=== PATIENT | male | born 1945 | race Caucasian/White ===

== ENCOUNTER 2020-06-18 13:50 | Emergency (ER) | payer MEDICARE, OTHER ==
[~2020-06-18] VITALS: Ht 172.7 cm; Wt 83.9 kg
[2020-06-18] MEDS ORDERED: LEVE500T20 PO (14:07)
[2020-06-18] MEDS ORDERED: CARB-93 PO (14:07)
[2020-06-18] MEDS ORDERED: LEVO75TA7 PO (14:07)
[2020-06-18] MEDS ORDERED: FOLIC ACID PO (14:07)
[2020-06-18] MEDS ORDERED: FURO-151 PO (14:07)
[2020-06-18] MEDS ORDERED: CYAN100T44 PO (14:07)
[2020-06-18 15:08] LABS: BASOPHILS # (AUTO) 0.1 K/uL (0.0-8.0); BASOPHILS % (AUTO) 1.1 % (0.0-2.0); EOSINOPHILS # (AUTO) 0.1 K/uL (0.0-0.7); EOSINOPHILS % (AUTO) 1.2 % (0.0-7.0); HEMATOCRIT 37.3 % (36.7-47.1); HEMOGLOBIN 12.6 g/dL (12.5-16.3); LYMPHOCYTES # (AUTO) 0.8 K/uL (20.0-40.0); LYMPHOCYTES % (AUTO) 11.5 % (20.5-51.5); MEAN CORPUSCULAR HEMOGLOBIN 32.2 uug (23.8-33.4); MEAN CORPUSCULAR HGB CONC 34 g/dL (32.5-36.3); MEAN CORPUSCULAR VOLUME 95.2 fL (73.0-96.2); MONOCYTES # (AUTO) 0.5 K/uL (2.0-10.0); MONOCYTES % (AUTO) 6.4 % (0.0-11.0); NEUTROPHILS # (AUTO) 5.8 K/uL (1.8-8.9); NEUTROPHILS % (AUTO) 79.8 % (38.5-71.5); PLATELET COUNT (AUTO) 188 K/uL (152-348); RED BLOOD CELL COUNT(AUTO) 3.92 MIL/uL (4.06-5.63); WHITE BLOOD COUNT (AUTO) 7.3 K/uL (3.6-10.2)
[2020-06-18 15:21] LABS: CARBON DIOXIDE 32 mmol/L (21-32); CHLORIDE 103 mmol/L (98-107); CREATININE 1.5 mg/dL (0.6-1.3); GLUCOSE 93 mg/dL (74-106); POTASSIUM 3.7 mmol/L (3.5-5.1); UREA NITROGEN, BLOOD 34 mg/dL (7-18)
[2020-06-18 15:28] LABS: ALANINE AMINOTRANSFERASE 11 U/L (16-63); ALKALINE PHOSPHATASE 60 U/L (50-136); ASPARTATE AMINOTRANSFERASE 10 U/L (15-37); BILIRUBIN,DIRECT 0.2 mg/dL (0.0-0.2); BILIRUBIN,TOTAL 0.6 mg/dL (0.2-1.0); TOTAL PROTEIN, SERUM 7.3 g/dL (6.4-8.2)
[2020-06-18] MEDS ORDERED: GLUCAGON,HUMAN RECOMBINANT 1 MG VIAL ONE (15:30)
[2020-06-18] MEDS ORDERED: GLUCAGON,HUMAN RECOMBINANT 1 MG VIAL IVP ONE (15:30)
[2020-06-18] MEDS ORDERED: DILTIAZEM HCL 25 MG IV IV ONE (16:15)
[2020-06-18] MEDS ORDERED: DILTIAZEM HCL 25 MG IV ONE (16:20)
[2020-06-18 16:23] LABS: THYROID STIMULATING HORMONE 7.932 mIU/mL (0.358-3.740)
[2020-06-18] MEDS ORDERED: FUROSEMIDE 40 MG/4 ML VIAL IV ONE (17:00)
--- NOTE | 2020-06-18 17:01 | NUR ---
PO challenged started.
[2020-06-18] MEDS ORDERED: FUROSEMIDE 40 MG/4 ML VIAL ONE (17:09)
--- NOTE | 2020-06-18 17:25 | NUR ---
Patient ambulated to bathroom with one person assist.
--- NOTE | 2020-06-18 17:29 | NUR ---
Patient said that he "spit out the juice" and still feels some discomfort/pain@the lower neck area, MD notified.
--- NOTE | 2020-06-18 18:33 | NUR ---
Patient is resting comfortably on gurney while watching bedside TV.
--- NOTE | 2020-06-18 19:07 | NUR ---
Patient is still for repeat troponin. Lab notified. Patient may be discharge if troponin is negative. Hands off report given to CORBY Loya.
--- NOTE | 2020-06-18 21:33 | NUR ---
Patient second Troponin Results came in. Negative (<0.056) results are 0.017. Relayed information to patient caregiver - Jennifer - She will be picking patient up.
[2020-06-18 21:35] VITALS: BP 107/60
--- NOTE | 2020-06-18 22:41 | NUR ---
Patient discharged in stable condition. Picked up by caregiver Jennifer. All information given to patient.
== END 2020-06-18 22:43 | disposition home or self-care (01) ==
LOC: ER 13:50
DX: T17.928A Food in respiratory tract, part unspecified causing other injury, initial encounter (principal); X58.XXXA Exposure to other specified factors, initial encounter; Y93.89 Activity, other specified; Y92.89 Other specified places as the place of occurrence of the external cause; Y99.8 Other external cause status; I48.91 Unspecified atrial fibrillation; R07.9 Chest pain, unspecified; I50.9 Heart failure, unspecified; Z79.899 Other long term (current) drug therapy; Z79.02 Long term (current) use of antithrombotics/antiplatelets
CPT/HCPCS: 36415; 71045; 80048; 80076; 83880; 84443; 84484 ×2; 85025; 85730; 93005; 96374; 96375; 99285; J1610; J1940; J3490; 70030-TC; A4663

== ENCOUNTER 2020-09-04 12:18 | Inpatient (IN) | payer MEDICARE, OTHER ==
[~2020-09-04] VITALS: Ht 167.6 cm; Wt 80.3 kg
[~2020-09-04 12:18] MED LIST: CARB-93 PO; CYAN100T44 PO; FOLIC ACID PO; FURO-151 PO; LEVE500T20 PO; LEVO75TA7 PO
--- NOTE | 2020-09-04 12:25 | NUR ---
Patient brought in by [facility] 88 for hypotension BP: 69/41 (Reported from paramedics), FSBS 125, 20 gauge saline locked IV noted in right AC
--- NOTE | 2020-09-04 12:40 | NUR ---
at bedside of assssment
[2020-09-04] MEDS ORDERED: PANT40TA49 PO (12:47)
[2020-09-04] MEDS ORDERED: LISI-782 PO (12:47)
[2020-09-04] MEDS ORDERED: POTA10CA43 PO (12:47)
[2020-09-04] MEDS ORDERED: LEVO50TA8 PO (12:47)
[2020-09-04] MEDS ORDERED: CALC-6 PO (12:47)
[2020-09-04] MEDS ORDERED: DABI150C PO (12:47)
[2020-09-04] MEDS ORDERED: ALEN70TA80 PO (12:47)
[2020-09-04] MEDS ORDERED: AMIO200T5 PO (12:47)
[2020-09-04] MEDS ORDERED: IV NORMAL SALINE 500 ML BAG IV ONE (13:15)
[2020-09-04 13:20] LABS: RED BLOOD CELL COUNT(AUTO) 3.65 MIL/uL (4.06-5.63); WHITE BLOOD COUNT (AUTO) 12.7 K/uL (3.6-10.2)
[2020-09-04 13:22] LABS: BASOPHILS # (AUTO) 0.1 K/uL (0.0-8.0); BASOPHILS % (AUTO) 0.5 % (0.0-2.0); HEMATOCRIT 35.2 % (36.7-47.1); HEMOGLOBIN 11.8 g/dL (12.5-16.3); LYMPHOCYTES # (AUTO) 0.5 K/uL (20.0-40.0); LYMPHOCYTES % (AUTO) 3.7 % (20.5-51.5); MEAN CORPUSCULAR HEMOGLOBIN 32.4 uug (23.8-33.4); MEAN CORPUSCULAR HGB CONC 34 g/dL (32.5-36.3); MEAN CORPUSCULAR VOLUME 96.3 fL (73.0-96.2); MONOCYTES # (AUTO) 0.9 K/uL (2.0-10.0); MONOCYTES % (AUTO) 6.9 % (0.0-11.0); NEUTROPHILS # (AUTO) 11.3 K/uL (1.8-8.9); NEUTROPHILS % (AUTO) 88.9 % (38.5-71.5); PLATELET COUNT (AUTO) 151 K/uL (152-348)
[2020-09-04 13:26] LABS: CARBON DIOXIDE 29 mmol/L (21-32); CHLORIDE 101 mmol/L (98-107); CREATININE 2.7 mg/dL (0.6-1.3); GLUCOSE 116 mg/dL (74-106); POTASSIUM 3.6 mmol/L (3.5-5.1); UREA NITROGEN, BLOOD 54 mg/dL (7-18)
[2020-09-04 13:31] LABS: ALANINE AMINOTRANSFERASE 12 U/L (16-63); ALKALINE PHOSPHATASE 52 U/L (50-136); ASPARTATE AMINOTRANSFERASE 10 U/L (15-37); BILIRUBIN,TOTAL 1.2 mg/dL (0.2-1.0); CREATINE KINASE, TOTAL 66 U/L (39-308); LACTATE DEHYDROGENASE 138 U/L (85-227); TOTAL PROTEIN, SERUM 6.7 g/dL (6.4-8.2)
[2020-09-04 13:37] LABS: FERRITIN 227 ng/mL (26-388)
--- NOTE | 2020-09-04 13:38 | NUR ---
Unable to get urine at this time
[2020-09-04] MEDS ORDERED: PIPERACILLIN SODIUM/TAZOBACTAM 3.375 G in IV DEXTROSE 5% 50 ML IV ONE (13:45)
[2020-09-04] MEDS ORDERED: PIPERACILLIN/TAZOBACTAM/D5W 50 ML IV ONE (14:01)
[2020-09-04] MEDS ORDERED: IV NS 1000 ML 1,000 ML IV ONE (15:15)
[2020-09-04] MEDS ORDERED: ONDANSETRON 4 MG/2 ML VIAL IV PRN (15:15)
[2020-09-04] MEDS ORDERED: ALENDRONATE SODIUM 70 MG TABLET PO SCH (15:30)
[2020-09-04] MEDS ORDERED: LEVOTHYROXINE SODIUM 50 MCG TABLET PO SCH (15:30)
[2020-09-04 15:35] LABS: BILIRUBIN,DIRECT 0.4 mg/dL (0.0-0.2); BILIRUBIN,TOTAL 1.2 mg/dL (0.2-1.0)
--- NOTE | 2020-09-04 17:13 | NUR ---
Report given to Lawton CORBY
--- NOTE | 2020-09-04 17:30 | NUR ---
Pt. admitted to [facility] , under care of LEONIE Newman Belongs List completed and all belongings sent with patient
[2020-09-04 17:45] VITALS: BP 106/61
--- NOTE | 2020-09-04 18:30 | NUR ---
VSS 106/61 - resp 20- pulse 120's afib uncontrolled RVR. DR HARVEY aware of HR. New order received. For Cardizem.
[2020-09-04] MEDS ORDERED: DILTIAZEM HCL 25 MG IV IV ONE (18:45)
[2020-09-04] MEDS ORDERED: DILTIAZEM HCL IV 125 MG in IV NORMAL SALINE 100 ML IV PRN (18:45)
[2020-09-04] MEDS ORDERED: AMIODARONE HCL IV 150 MG in IV DEXTROSE 5% 100 ML IV ONE (19:00)
--- NOTE | 2020-09-04 19:07 | NUR ---
Per pharmacy new order received for amiodorone instead of cardizem.
[2020-09-04 19:23] LABS: *BILIRUBIN,URIN NEGATIVE (NEGATIVE); *BLOOD, URINE 3+ (NEGATIVE); *CLARITY,URINE CLOUDY (CLEAR); *COLOR,URINE YELLOW (YELLOW); *KETONES,URINE NEGATIVE (NEGATIVE); *UROBILINOGEN,URINE 0.2 E.U./dl (NORMAL); LEUKOCYTE ESTERASE ,URINE 2+ (NEGATIVE); NITRITE, URINE NEGATIVE (NEGATIVE); UGLUCOSE NEGATIVE (NEGATIVE)
[2020-09-04] MEDS: FOLIC ACID 1 MG TABLET PO SCH (19:49)
[2020-09-04] MEDS: CARBIDOPA/LEVODOPA 25-100MG TABLET PO SCH ×2 (19:49→21:00)
[2020-09-04] MEDS: levETIRAcetam 500 MG TABLET PO SCH (19:49)
[2020-09-04] MEDS: DABIGATRAN ETEXILATE MESYLATE 75 MG CAPSULE PO SCH (19:54)
[2020-09-04] MEDS: CALCIUM CARB/VITAMIN D 250MG-125UNITS TABLET PO SCH (19:55)
[2020-09-04] MEDS: AMIODARONE HCL IV 450 MG in IV DEXTROSE 5% 250 ML IV PRN (20:12)
[2020-09-04 20:46] VITALS: BP 96/60
[2020-09-04] MEDS: PIPERACILLIN SODIUM/TAZOBACTAM 3.375 G in IV DEXTROSE 5% 50 ML IV SCH (21:27)
--- NOTE | 2020-09-04 23:00 | NUR ---
pt seen by LEONIE Zamora with new orders; pt on amiodarone drip; remains AFIB RVR; safety maintained; continue to monitor.
[2020-09-04 23:11] LABS: BACTERIA,URINE MANY /HPF (NONE SEEN); RBC,URINE TNTC /HPF (0-3); SQUAMOUS EPITHELIAL CELL,UR FEW /HPF (NONE SEEN); URINE AMORPHOUS URATE MANY /HPF; WBC,URINE 80-100 /HPF (0-3)
[2020-09-05] VITALS (8 sets, daily range): BP systolic 91–118; BP diastolic 53–70
[2020-09-05] MEDS ORDERED: AMIODARONE HCL 150 MG/3 ML VIAL IV ONE (02:24)
[2020-09-05] MEDS: DABIGATRAN ETEXILATE MESYLATE 75 MG CAPSULE PO SCH (05:09)
[2020-09-05] MEDS: PIPERACILLIN SODIUM/TAZOBACTAM 3.375 G in IV DEXTROSE 5% 50 ML IV SCH ×3 (05:10→22:00)
[2020-09-05] MEDS: AMIODARONE HCL IV 450 MG in IV DEXTROSE 5% 250 ML IV PRN ×2 (05:11→17:11)
[2020-09-05 06:55] LABS: BASOPHILS % (AUTO) 0.4 % (0.0-2.0); EOSINOPHILS % (AUTO) 0.4 % (0.0-7.0); HEMATOCRIT 33.1 % (36.7-47.1); HEMOGLOBIN 11.7 g/dL (12.5-16.3); LYMPHOCYTES # (AUTO) 0.7 K/uL (20.0-40.0); LYMPHOCYTES % (AUTO) 6.6 % (20.5-51.5); MEAN CORPUSCULAR HEMOGLOBIN 33.7 uug (23.8-33.4); MEAN CORPUSCULAR HGB CONC 35 g/dL (32.5-36.3); MEAN CORPUSCULAR VOLUME 95.7 fL (73.0-96.2); MONOCYTES % (AUTO) 9.9 % (0.0-11.0); NEUTROPHILS # (AUTO) 8.2 K/uL (1.8-8.9); NEUTROPHILS % (AUTO) 82.7 % (38.5-71.5); PLATELET COUNT (AUTO) 143 K/uL (152-348); RED BLOOD CELL COUNT(AUTO) 3.46 MIL/uL (4.06-5.63); WHITE BLOOD COUNT (AUTO) 9.9 K/uL (3.6-10.2)
[2020-09-05 07:13] LABS: THYROID STIMULATING HORMONE 3.368 mIU/mL (0.358-3.740)
[2020-09-05 07:21] LABS: CARBON DIOXIDE 30 mmol/L (21-32); CHLORIDE 101 mmol/L (98-107); CREATININE 1.8 mg/dL (0.6-1.3); GLUCOSE 93 mg/dL (74-106); POTASSIUM 3.3 mmol/L (3.5-5.1); UREA NITROGEN, BLOOD 41 mg/dL (7-18)
[2020-09-05 07:30] LABS: IRON, SERUM 20 ug/dL (50-175)
[2020-09-05 07:42] LABS: ALANINE AMINOTRANSFERASE 10 U/L (16-63); ALKALINE PHOSPHATASE 46 U/L (50-136); ASPARTATE AMINOTRANSFERASE 12 U/L (15-37); BILIRUBIN,TOTAL 0.9 mg/dL (0.2-1.0); CHOLESTEROL 112 mg/dL (<200); FERRITIN 298 ng/mL (26-388); HDL CHOLESTEROL 42 mg/dL (40-60); PHOSPHOROUS 2.6 mg/dL (2.5-4.9); TOTAL PROTEIN, SERUM 6.6 g/dL (6.4-8.2); TRIGLYCERIDES 38 MG/DL (30-150)
--- NOTE | 2020-09-05 08:00 | NUR ---
Pt alert and oriented. Pt able to verbalize his needs. Aspiration, Fall, Seizure precaution implemented. PT on amiodorone drip @ 0.5mg/ml per protocol. Pt denies any c/o pain. Buttock reddened but pt able to turn himself side to side. Heels floated. IV on right ac and right f/a intact. Call light is within reach.
[2020-09-05] MEDS: CARBIDOPA/LEVODOPA 25-100MG TABLET PO SCH ×4 (08:31→20:47)
[2020-09-05] MEDS: FOLIC ACID 1 MG TABLET PO SCH ×2 (08:31→16:37)
[2020-09-05] MEDS: levETIRAcetam 500 MG TABLET PO SCH ×2 (08:31→16:37)
[2020-09-05] MEDS: CALCIUM CARB/VITAMIN D 250MG-125UNITS TABLET PO SCH ×2 (08:31→16:38)
[2020-09-05] MEDS: PANTOPRAZOLE SODIUM 40 MG TABLET.DR PO SCH (08:31)
[2020-09-05] MEDS: FUROSEMIDE 40 MG TABLET PO SCH (08:31)
[2020-09-05] MEDS: CYANOCOBALAMIN 1,000 MCG TABLET PO SCH (08:41)
[2020-09-05] MEDS ORDERED: AMIODARONE HCL 200 MG TABLET PO SCH (09:00)
[2020-09-05] MEDS ORDERED: PANTOPRAZOLE SODIUM 40 MG VIAL IV SCH (09:00)
[2020-09-05] MEDS ORDERED: POTASSIUM CHLORIDE 20 MEQ POWDER PACKET PO ONE (09:00)
[2020-09-05] MEDS ORDERED: CYANOCOBALAMIN 100 MCG TABLET PO SCH (09:00)
--- NOTE | 2020-09-05 10:00 | NUR ---
Pt refused F/c insertion as ordered per Oksana DAVILA. Oksana notified of pt refusal and notified that pt was able to urinate 250cc. Checked residual of 42cc. Per Oksana insert f/c if bladder scan results greater than 300cc and check bladder scan q4 hrs.
--- NOTE | 2020-09-05 12:00 | NUR ---
IV on right ac infiltrated restarted iv on left f/a with #20gauge. Pt has good appetite.
--- NOTE | 2020-09-05 12:33 | NUR ---
WOUND CARE CONSULT: PT REFUSED SKIN ASSESSMENT AND STATES "MY EARS ARE FINE". WILL SEE PT PT CONDITION PERMITS. CURRENT JJ SCORE IS 20.
--- NOTE | 2020-09-05 14:00 | NUR ---
Bladder scanned as ordered resulted 85cc.
--- NOTE | 2020-09-05 16:00 | NUR ---
bladder scan resulted 30cc. Pt has been able to urinate throughout shift without any difficulty. Urine colored dared dyllan cloudy.
--- NOTE | 2020-09-05 18:30 | NUR ---
Pt transferred TO ICU as [facility] pt. Pt is in no acute distress. Noted coughing when feeding pt even with HOB elevated @90 degrees. Call light is within reach.
--- NOTE | 2020-09-05 19:00 | NUR ---
Received patient from Telemetry floor. Patient is a 75 year old male who presented to the ED for general weakness, feeling ill, and was hypotensive in the field. Patient is in Afib/flutter at a rate of 136bpm at this moment. Patient is alert and orientated and able to vocalize needs. As mentioned above -- Afib/flutter with a rate of 136bpm on the monitor. Amiodarone running at 0.5mg/hr with orders to continue running it till patient converts. No chest pain or palpitations. BP: 126/57 Lung sounds non-remarkable. No SOB. No dyspnea. Patient has prostatic hypertrophy and refused a Kerr. He is continent and is able to use urinal. Urine is dyllan/yellow - cloudy - and has a strong odor.
--- NOTE | 2020-09-05 19:30 | NUR ---
Patients Right Forearm IV line that was infusing Amiodarone was assessed. I was getting resistance and patient noted a bit of pain as the line was being flushed. To ensure patients Amiodarone was infusing - new IV was started on Right Upper Arm and Amiodarone was continued on that line.
[2020-09-05] MEDS: ACETAMINOPHEN 325 MG TABLET PO PRN (20:34)
[2020-09-05] MEDS: DABIGATRAN ETEXILATE MESYLATE 150 MG CAPSULE PO SCH (20:36)
[2020-09-06] VITALS (8 sets, daily range): BP systolic 94–112; BP diastolic 59–74
[2020-09-06] MEDS: IV NORMAL SALINE 250 ML IV PRN (03:07)
[2020-09-06 05:23] LABS: BASOPHILS # (AUTO) 0.1 K/uL (0.0-8.0); BASOPHILS % (AUTO) 0.7 % (0.0-2.0); EOSINOPHILS # (AUTO) 0.2 K/uL (0.0-0.7); EOSINOPHILS % (AUTO) 2.5 % (0.0-7.0); HEMATOCRIT 34.7 % (36.7-47.1); HEMOGLOBIN 11.7 g/dL (12.5-16.3); LYMPHOCYTES # (AUTO) 0.7 K/uL (20.0-40.0); MEAN CORPUSCULAR HEMOGLOBIN 32.8 uug (23.8-33.4); MEAN CORPUSCULAR HGB CONC 34 g/dL (32.5-36.3); MEAN CORPUSCULAR VOLUME 97.1 fL (73.0-96.2); MONOCYTES # (AUTO) 0.9 K/uL (2.0-10.0); MONOCYTES % (AUTO) 12.4 % (0.0-11.0); NEUTROPHILS # (AUTO) 5.4 K/uL (1.8-8.9); NEUTROPHILS % (AUTO) 74.4 % (38.5-71.5); PLATELET COUNT (AUTO) 131 K/uL (152-348); RED BLOOD CELL COUNT(AUTO) 3.57 MIL/uL (4.06-5.63); WHITE BLOOD COUNT (AUTO) 7.2 K/uL (3.6-10.2)
[2020-09-06 05:45] LABS: ALANINE AMINOTRANSFERASE < 6 U/L (16-63); ALKALINE PHOSPHATASE 46 U/L (50-136); ASPARTATE AMINOTRANSFERASE 12 U/L (15-37); BILIRUBIN,DIRECT 0.2 mg/dL (0.0-0.2); BILIRUBIN,TOTAL 0.7 mg/dL (0.2-1.0); CARBON DIOXIDE 33 mmol/L (21-32); CHLORIDE 102 mmol/L (98-107); CREATININE 1.4 mg/dL (0.6-1.3); GLUCOSE 85 mg/dL (74-106); PHOSPHOROUS 2.7 mg/dL (2.5-4.9); POTASSIUM 3.4 mmol/L (3.5-5.1); TOTAL PROTEIN, SERUM 6.8 g/dL (6.4-8.2); UREA NITROGEN, BLOOD 29 mg/dL (7-18)
[2020-09-06] MEDS: PIPERACILLIN SODIUM/TAZOBACTAM 3.375 G in IV DEXTROSE 5% 50 ML IV SCH ×2 (06:12→13:53)
--- NOTE | 2020-09-06 06:43 | NUR ---
Patients status remained relatively unchanged. Remains fully Alert & Orientated. Will be evaluated by Speech Therapy later today to see if diet can advance. Patient remains in Afib & AFlutter (Variable 2:1 - 3:1 Conduction) although it is now controlled (<100BPM) after new IVs were inserted. Patient does need some education regarding his "Heart Medication". I was able to inform him of the importance of his Anticoagulants and his Antidysrhythmic medications but it will likely need to be reinforced. Nothing of note when it comes to respiratory. Saturations >94%. No SOB - slightly diminished lung sounds. Two bladder scans were performed. First showed 25cc of fluid - the second (0500) showed 231cc of fluid. Patient stated he does not feel urge to urinate, was asked to use urinal regardless and was able to produce 175cc of urine. Was educated to try and urinate around the clock even if there is no urge to urinate. One small bowel movement.
[2020-09-06] MEDS: AMIODARONE HCL IV 450 MG in IV DEXTROSE 5% 250 ML IV PRN ×2 (07:25→19:36)
[2020-09-06] MEDS ORDERED: DIGOXIN 500 MCG/2 ML AMP IV ONE ×3 (07:45→20:00)
[2020-09-06] MEDS ORDERED: POTASSIUM CHLORIDE 20 MEQ POWDER PACKET PO ONE (07:45)
[2020-09-06] MEDS: DABIGATRAN ETEXILATE MESYLATE 150 MG CAPSULE PO SCH ×2 (08:00→20:52)
[2020-09-06] MEDS: PANTOPRAZOLE SODIUM 40 MG TABLET.DR PO SCH (08:00)
[2020-09-06] MEDS: levETIRAcetam 500 MG TABLET PO SCH ×2 (08:00→17:25)
[2020-09-06] MEDS: CARBIDOPA/LEVODOPA 25-100MG TABLET PO SCH ×4 (08:00→20:52)
--- NOTE | 2020-09-06 08:00 | NUR ---
Cardio Dr. Menchaca in the unit to see and assess pt. full report given. pt remains in Afib and per MD continue with Amio drip. MD also order IV Digoxin and per MD, if pt converts or goes bradycardic, can DC Amio drip. also said to not give PO Lasix as he will change it to IV Lasix. . PO LAsix not given as ordered
[2020-09-06] MEDS: CALCIUM CARB/VITAMIN D 250MG-125UNITS TABLET PO SCH ×2 (08:01→17:26)
[2020-09-06] MEDS: FUROSEMIDE 40 MG TABLET PO SCH (08:01)
[2020-09-06] MEDS: FOLIC ACID 1 MG TABLET PO SCH ×2 (08:01→17:25)
[2020-09-06] MEDS: CYANOCOBALAMIN 1,000 MCG TABLET PO SCH (08:07)
[2020-09-06] MEDS ORDERED: FUROSEMIDE 40 MG/4 ML VIAL IV ONE (08:15)
--- NOTE | 2020-09-06 08:20 | NUR ---
ST at bedside to assess pt. per ST, okay to continue current diet but they will continue to work with pt
--- NOTE | 2020-09-06 09:12 | NUR ---
Dr. Marley in the unit to see and assess pt. full report given. see order hx
--- NOTE | 2020-09-06 10:40 | NUR ---
PT was at bedside to work with pt. per PT, pt was able to walk a couple of steps back and forth next to his bed
--- NOTE | 2020-09-06 11:45 | NUR ---
Dr. Mg Chaudhary in the unit to see and assess pt. full report given
[2020-09-06] MEDS: CEFTRIAXONE 1 G in IV DEXTROSE 5% 50 ML IV SCH (15:23)
--- NOTE | 2020-09-06 19:10 | NUR ---
received patient awake , able to follow command ,, cooperative on room air , afib at 88 , bp at 118 / 73 , temp 100 . 4 , oxygen saturation at 98 % , rr 29
--- NOTE | 2020-09-06 19:51 | NUR ---
alfredo nnp id is here update given on the patient'ss status including temp and medications
--- NOTE | 2020-09-06 21:15 | NUR ---
bladder scan done 127 ml result
[2020-09-06] MEDS ORDERED: PIPERACILLIN SODIUM/TAZOBACTAM 3.37 G in IV DEXTROSE 5% 100 ML IV SCH (22:00)
[2020-09-07] VITALS (11 sets, daily range): BP systolic 94–127; BP diastolic 52–80
[2020-09-07 04:55] LABS: EOSINOPHILS # (AUTO) 0.2 K/uL (0.0-0.7); EOSINOPHILS % (AUTO) 4.6 % (0.0-7.0); HEMATOCRIT 33.1 % (36.7-47.1); HEMOGLOBIN 11.2 g/dL (12.5-16.3); LYMPHOCYTES # (AUTO) 0.9 K/uL (20.0-40.0); MEAN CORPUSCULAR HEMOGLOBIN 32.3 uug (23.8-33.4); MEAN CORPUSCULAR HGB CONC 34 g/dL (32.5-36.3); MEAN CORPUSCULAR VOLUME 95.4 fL (73.0-96.2); MONOCYTES # (AUTO) 0.7 K/uL (2.0-10.0); NEUTROPHILS # (AUTO) 3.1 K/uL (1.8-8.9); NEUTROPHILS % (AUTO) 62.4 % (38.5-71.5); PLATELET COUNT (AUTO) 149 K/uL (152-348); RED BLOOD CELL COUNT(AUTO) 3.47 MIL/uL (4.06-5.63)
[2020-09-07 05:01] LABS: CREATININE 1.2 mg/dL (0.6-1.3); POTASSIUM 3.8 mmol/L (3.5-5.1)
--- NOTE | 2020-09-07 06:00 | NUR ---
awake , oriented , able to follow command , on room air , amiodarone running at 0.5 mg right iv intact , tks ns , at 10 ml , no pain , no seizure , fevr noted , current vs hr at 68 afib, bp of `09/64 ,rr 18 , 97 % ra
[2020-09-07] MEDS: LEVOTHYROXINE SODIUM 50 MCG TABLET PO SCH (06:29)
[2020-09-07] MEDS: PANTOPRAZOLE SODIUM 40 MG TABLET.DR PO SCH (06:30)
[2020-09-07] MEDS: levETIRAcetam 500 MG TABLET PO SCH ×2 (08:02→18:04)
[2020-09-07] MEDS: DIGOXIN 125 MCG TABLET PO SCH (08:02)
[2020-09-07] MEDS: FOLIC ACID 1 MG TABLET PO SCH ×2 (08:03→18:04)
[2020-09-07] MEDS: CARBIDOPA/LEVODOPA 25-100MG TABLET PO SCH ×4 (08:03→21:34)
[2020-09-07] MEDS: DABIGATRAN ETEXILATE MESYLATE 150 MG CAPSULE PO SCH ×2 (08:06→21:38)
[2020-09-07] MEDS: CALCIUM CARB/VITAMIN D 250MG-125UNITS TABLET PO SCH ×2 (08:08→18:05)
[2020-09-07] MEDS: CYANOCOBALAMIN 1,000 MCG TABLET PO SCH (08:08)
[2020-09-07] MEDS: AMIODARONE HCL IV 450 MG in IV DEXTROSE 5% 250 ML IV PRN (09:39)
--- NOTE | 2020-09-07 10:43 | NUR ---
WOUND CARE CONSULT: PT PRESENTS WITH SACRAL AREA SCARRING, PRESENT ON ADMISSION. THERE ARE PINK RAISED LESIONS NOTED TO LEFT BUTTOCK, PRESENT ON ADMISSION, UNKNOWN ETIOLOGY, NO DRAINAGE OR ERYTHEMA. RN TO DISCUSS WITH PMD. RECOMMENDATIONS MADE FOR SKIN PROTECTION. DISCUSSED WITH NURSING STAFF. PT IS ABLE TO ASSIST WITH TURNING AND REPOSITIONING IN BED. MD IN AGREEMENT WITH PLAN OF CARE. Addendum: 09/07/20 at 1044 by STEPHANIE LANGE RN Amended: Links added.
[2020-09-07] MEDS ORDERED: POTASSIUM CHLORIDE 20 MEQ POWDER PACKET PO ONE (11:15)
--- NOTE | 2020-09-07 12:00 | NUR ---
Received report on pt from chargeback analyst. Pt came from CCU, awake alert and oriented x4, pt sitting in chair at bedside. pt on 2gm NA restricted diet, pt has some redness on the buttocks, covered with foam dressing. IV on the right hand, patent, dressing in tact, bed in low and locked position, call light within reach, will continue to monitor.
[2020-09-07] MEDS: FUROSEMIDE 40 MG/4 ML VIAL IV SCH ×2 (12:31→21:33)
[2020-09-07] MEDS: CEFTRIAXONE 1 G in IV DEXTROSE 5% 50 ML IV SCH (15:19)
[2020-09-07] MEDS: IV NORMAL SALINE 250 ML IV PRN (15:20)
--- NOTE | 2020-09-07 18:58 | NUR ---
pt resting in bed, awake alert and oriented x4, sputum culture collected. pt has redness on the sacrum, covered with foam dressing. IV on the right hand, TKO NS at 5ml/hr.all medications given as ordered, on room air no signs of distress noted, no reports of pain at this time. bed in low and locked position, call light within reach, safety precautions in place, will endorse to oncoming nurse.
--- NOTE | 2020-09-07 19:00 | NUR ---
pt in bed resting, awake alert and orientedx4, latvian speaking, on tele monitor NSR, on room air, no signs of distress noted, no reports of pain at this time. pt on 2g NA restricted diet, NG tube has been removed, pt able to swallow whole pills and tolerate solid foods. pt is ambulatory, steady gait. pt has BRP. all medications given as ordered, IV on the right AC saline lock. bed in low and locked position, call light within reach, safety precautions in place, will endorse to oncoming nurse.
--- NOTE | 2020-09-07 20:38 | NUR ---
PATIENT ALERT ORIENTED, NO SOB NO CHEST PAIN, TELE MONITOR A FIB CONTROL. PATIENT HAS NO COMPLAIN OF PAIN, PATIENT VOIDING ON THE URINAL, BLADDER SCAN DONE RESIDUAL OF 141CC ONLY AFTER VOIDING. CONT TO MONITOR.
[2020-09-07] MEDS: CEphaleXIN 500 MG CAPSULE PO SCH (21:34)
[2020-09-08 00:12] VITALS: BP 105/53
[2020-09-08 04:20] VITALS: BP 111/65
--- NOTE | 2020-09-08 05:39 | NUR ---
PATIENT ALERT NO COMPLAIN OF PAIN, NO SOB NO CHEST PAIN. PATIENT TELE MONITOR BIGEMINY, WITH FREQUENT PVC, A FIB CONTROL. PATIENT WAS ASKED IF HE CAN GIVE US A SPUTUM SAMPLE, BUT PATIENT ABLE TO COUGH BUT NO SPUTUM AT THIS TIME. PATIENT SLEPT MOST OF THE NIGHT, WILL CONTINUE TO COLLECT SPUTUM.
[2020-09-08 06:16] LABS: BASOPHILS # (AUTO) 0.1 K/uL (0.0-8.0); BASOPHILS % (AUTO) 0.9 % (0.0-2.0); EOSINOPHILS # (AUTO) 0.2 K/uL (0.0-0.7); EOSINOPHILS % (AUTO) 2.9 % (0.0-7.0); HEMATOCRIT 36.2 % (36.7-47.1); HEMOGLOBIN 12.2 g/dL (12.5-16.3); LYMPHOCYTES # (AUTO) 0.8 K/uL (20.0-40.0); LYMPHOCYTES % (AUTO) 10.4 % (20.5-51.5); MEAN CORPUSCULAR HEMOGLOBIN 32.1 uug (23.8-33.4); MEAN CORPUSCULAR HGB CONC 34 g/dL (32.5-36.3); MEAN CORPUSCULAR VOLUME 94.7 fL (73.0-96.2); MONOCYTES # (AUTO) 0.9 K/uL (2.0-10.0); MONOCYTES % (AUTO) 11.4 % (0.0-11.0); NEUTROPHILS # (AUTO) 5.7 K/uL (1.8-8.9); NEUTROPHILS % (AUTO) 74.4 % (38.5-71.5); PLATELET COUNT (AUTO) 190 K/uL (152-348); RED BLOOD CELL COUNT(AUTO) 3.82 MIL/uL (4.06-5.63); WHITE BLOOD COUNT (AUTO) 7.7 K/uL (3.6-10.2)
[2020-09-08] MEDS: LEVOTHYROXINE SODIUM 50 MCG TABLET PO SCH (06:26)
[2020-09-08] MEDS: PANTOPRAZOLE SODIUM 40 MG TABLET.DR PO SCH (06:26)
[2020-09-08] MEDS: CEphaleXIN 500 MG CAPSULE PO SCH (06:26)
[2020-09-08 06:36] LABS: CREATININE 1.1 mg/dL (0.6-1.3); POTASSIUM 3.6 mmol/L (3.5-5.1)
--- NOTE | 2020-09-08 07:55 | NUR ---
Patient seen by Dr. Marley for daily rounds. D/C bladder scan. See notes.
[2020-09-08] MEDS ORDERED: POTASSIUM CHLORIDE 20 MEQ POWDER PACKET PO ONE (08:00)
[2020-09-08] MEDS: CALCIUM CARB/VITAMIN D 250MG-125UNITS TABLET PO SCH ×2 (09:09→16:24)
[2020-09-08] MEDS: CYANOCOBALAMIN 1,000 MCG TABLET PO SCH (09:09)
[2020-09-08] MEDS: FOLIC ACID 1 MG TABLET PO SCH ×2 (09:10→16:23)
[2020-09-08] MEDS: CARBIDOPA/LEVODOPA 25-100MG TABLET PO SCH ×4 (09:10→21:39)
[2020-09-08] MEDS: DIGOXIN 125 MCG TABLET PO SCH (09:10)
[2020-09-08] MEDS: levETIRAcetam 500 MG TABLET PO SCH ×2 (09:10→16:23)
[2020-09-08] MEDS: DABIGATRAN ETEXILATE MESYLATE 150 MG CAPSULE PO SCH ×2 (09:11→21:41)
[2020-09-08] MEDS: FUROSEMIDE 40 MG TABLET PO SCH (09:14)
[2020-09-08 11:56] VITALS: BP 123/75
[2020-09-08] MEDS: CEFTRIAXONE 1 G in IV DEXTROSE 5% 50 ML IV SCH (14:15)
[2020-09-08] MEDS: ACETAMINOPHEN 325 MG TABLET PO PRN (15:58)
[2020-09-08 16:00] VITALS: BP 113/69
--- NOTE | 2020-09-08 17:06 | NUR ---
Patient resting comfortably in bed for most of the day. Continue with physical therapy. Plan for acute Rehab when stable for continuity of care. V pace on monitor. Continue with Rocephin for UTI. No allergic reaction noted. Will continue to monitor.
--- NOTE | 2020-09-08 19:30 | NUR ---
Received pt in bed, awake and verbally responsive. No s/s of respiratory distress, denies any pain or discomfort. Afib controlled on tele at 87/min. IV access intact and patent. Safety measures initiated, call light within reach, will continue to monitor.
[2020-09-08 20:20] VITALS: BP 105/61
[2020-09-09 00:16] VITALS: BP 105/66
[2020-09-09 04:20] VITALS: BP 105/65
--- NOTE | 2020-09-09 06:15 | NUR ---
Pt slept through the night. No s/s of respiratory distress, denies any pain or discomfort. Afib with PVCs on tele at 86/min. IV access intact and patent. Safety measures maintained, call light within reach, all needs attended.
[2020-09-09] MEDS: PANTOPRAZOLE SODIUM 40 MG TABLET.DR PO SCH (06:26)
[2020-09-09 06:27] LABS: BASOPHILS # (AUTO) 0.1 K/uL (0.0-8.0); BASOPHILS % (AUTO) 0.8 % (0.0-2.0); EOSINOPHILS # (AUTO) 0.1 K/uL (0.0-0.7); HEMATOCRIT 34.2 % (36.7-47.1); LYMPHOCYTES % (AUTO) 13.5 % (20.5-51.5); MEAN CORPUSCULAR HEMOGLOBIN 32.9 uug (23.8-33.4); MEAN CORPUSCULAR HGB CONC 35 g/dL (32.5-36.3); MEAN CORPUSCULAR VOLUME 93.8 fL (73.0-96.2); MONOCYTES # (AUTO) 0.8 K/uL (2.0-10.0); MONOCYTES % (AUTO) 11.1 % (0.0-11.0); NEUTROPHILS # (AUTO) 5.2 K/uL (1.8-8.9); NEUTROPHILS % (AUTO) 72.6 % (38.5-71.5); PLATELET COUNT (AUTO) 201 K/uL (152-348); RED BLOOD CELL COUNT(AUTO) 3.64 MIL/uL (4.06-5.63); WHITE BLOOD COUNT (AUTO) 7.2 K/uL (3.6-10.2)
[2020-09-09 06:41] LABS: DIGOXIN 1.5 ng/mL (0.9-2.0); POTASSIUM 3.7 mmol/L (3.5-5.1)
[2020-09-09] MEDS ORDERED: POTASSIUM CHLORIDE 20 MEQ POWDER PACKET PO ONE (07:45)
[2020-09-09] MEDS ORDERED: POTASSIUM CHLORIDE 20 MEQ TAB.PRT.SR PO ONE (08:00)
--- NOTE | 2020-09-09 08:00 | NUR ---
received change of shift report on pt. pt awake alert and oriented x3, A fib, PVC on tele monitor. pt on room air, no signs of distress noted, no reports of pain. pt ambulatory, BRP, urinal at bedside. IV access on the right hand 20g and the right UA SL. bed in low and locked position, call light within reach, safety precautions in place.
[2020-09-09] MEDS: DIGOXIN 125 MCG TABLET PO SCH (09:32)
[2020-09-09] MEDS: CYANOCOBALAMIN 1,000 MCG TABLET PO SCH (09:33)
[2020-09-09] MEDS: FOLIC ACID 1 MG TABLET PO SCH ×2 (09:33→17:31)
[2020-09-09] MEDS: CARBIDOPA/LEVODOPA 25-100MG TABLET PO SCH ×4 (09:33→21:12)
[2020-09-09] MEDS: FUROSEMIDE 40 MG TABLET PO SCH (09:33)
[2020-09-09] MEDS: levETIRAcetam 500 MG TABLET PO SCH ×2 (09:33→17:31)
[2020-09-09] MEDS: DABIGATRAN ETEXILATE MESYLATE 150 MG CAPSULE PO SCH ×2 (09:34→21:14)
[2020-09-09] MEDS: CALCIUM CARB/VITAMIN D 250MG-125UNITS TABLET PO SCH ×2 (09:35→17:32)
[2020-09-09 09:36] VITALS: BP 103/66
[2020-09-09 12:04] VITALS: BP 106/56
[2020-09-09] MEDS: CEFTRIAXONE 1 G in IV DEXTROSE 5% 50 ML IV SCH (15:34)
--- NOTE | 2020-09-09 18:55 | NUR ---
pt in bed resting, awake alert and oriented x3, on tele monitor, on room air no signs of distress noted, pt has unproductive cough, no reports of pain. all medications given as ordered. pt ambulatory to restroom, BRP, urinal at bedside. IV access on the right hand 20g SL and on the right UA SL, both patent, intact. bed in low and locked position, call light within reach, safety precautions in place, will endorse to oncoming nurse.
--- NOTE | 2020-09-09 20:00 | NUR ---
awake alert.aware of procedure in am ct of the chest abdomen and pelvis. npo affter julio noted.cooperative,snacks given. lower extremities dressing noted Addendum: 09/09/20 at 2233 by ADAM HUFF RN wrong patient,wrong assessment
--- NOTE | 2020-09-09 20:00 | NUR ---
ALERT.AWAKE, NO SHORTNESS OF BREATHE,NO COMPLAINTS OF PAIN,IN NO ACUTE DISTRESS.
[2020-09-09 20:16] VITALS: BP 110/67
[2020-09-10 00:12] VITALS: BP 108/61
[2020-09-10 00:16] VITALS: BP 104/65
[2020-09-10] MEDS ORDERED: ALENDRONATE SODIUM 70 MG TABLET PO SCH (06:00)
[2020-09-10] MEDS: PANTOPRAZOLE SODIUM 40 MG TABLET.DR PO SCH (06:25)
[2020-09-10] MEDS: LEVOTHYROXINE SODIUM 50 MCG TABLET PO SCH (06:26)
[2020-09-10 06:46] LABS: BASOPHILS # (AUTO) 0.1 K/uL (0.0-8.0); BASOPHILS % (AUTO) 0.6 % (0.0-2.0); EOSINOPHILS # (AUTO) 0.2 K/uL (0.0-0.7); EOSINOPHILS % (AUTO) 1.8 % (0.0-7.0); HEMATOCRIT 34.1 % (36.7-47.1); HEMOGLOBIN 11.7 g/dL (12.5-16.3); LYMPHOCYTES # (AUTO) 0.9 K/uL (20.0-40.0); LYMPHOCYTES % (AUTO) 9.6 % (20.5-51.5); MEAN CORPUSCULAR HEMOGLOBIN 32.5 uug (23.8-33.4); MEAN CORPUSCULAR HGB CONC 34 g/dL (32.5-36.3); MEAN CORPUSCULAR VOLUME 94.7 fL (73.0-96.2); MONOCYTES # (AUTO) 0.9 K/uL (2.0-10.0); MONOCYTES % (AUTO) 9.4 % (0.0-11.0); NEUTROPHILS # (AUTO) 7.6 K/uL (1.8-8.9); NEUTROPHILS % (AUTO) 78.6 % (38.5-71.5); PLATELET COUNT (AUTO) 223 K/uL (152-348); WHITE BLOOD COUNT (AUTO) 9.7 K/uL (3.6-10.2)
[2020-09-10 07:14] LABS: CREATININE 0.9 mg/dL (0.6-1.3); POTASSIUM 4.1 mmol/L (3.5-5.1)
[2020-09-10] MEDS ORDERED: SULF1TAB48 PO (08:14)
[2020-09-10] MEDS ORDERED: DIGO125T5 PO (08:14)
--- NOTE | 2020-09-10 09:00 | NUR ---
PATIENT IS IN BED AWAKE ALERT COOPERATIVE COMPLIANT WITH MEDICATIONS AND CARE NO SOB AT THIS TIME TELE IS AFIB CONTROLLED CALL LIGHTS AND PERSONAL BELONGINGS ARE WITHIN EASY REACH MADE COMFORTABLE AND WILL CONTINUE TO OBSERVE.
[2020-09-10] MEDS: FUROSEMIDE 40 MG TABLET PO SCH (09:08)
[2020-09-10] MEDS: CALCIUM CARB/VITAMIN D 250MG-125UNITS TABLET PO SCH (09:09)
[2020-09-10] MEDS: FOLIC ACID 1 MG TABLET PO SCH (09:09)
[2020-09-10] MEDS: DIGOXIN 125 MCG TABLET PO SCH (09:09)
[2020-09-10] MEDS: levETIRAcetam 500 MG TABLET PO SCH (09:09)
[2020-09-10] MEDS: CARBIDOPA/LEVODOPA 25-100MG TABLET PO SCH ×2 (09:09→14:36)
[2020-09-10] MEDS: CYANOCOBALAMIN 1,000 MCG TABLET PO SCH (09:09)
[2020-09-10] MEDS: DABIGATRAN ETEXILATE MESYLATE 150 MG CAPSULE PO SCH (09:20)
[2020-09-10 12:35] VITALS: BP 105/58
--- NOTE | 2020-09-10 14:00 | NUR ---
PATIENT IS BEING PREPPED FOR DISCHARGE [place] REMOVED AWAITING FOR HIS CARE GIVERS TO PICK HIM UP
--- NOTE | 2020-09-10 15:10 | NUR ---
PATIENT DISCHARGED PICKED UP BY [facility] ONE OF THE CARE GIVERS IN SATISFACTORY CONDITION WHEELED OUT VIA W/CHAIR WITH ALL HIS PERSONAL BELONGINGS INCLUDING PATIENT OWN HOME MEDICATIONS FROM THE PHARMACY AND [employer] INSTALLER WAS ALSO INSTRUCTED THAT 2 MEDICATIONS NEEDED TO BE PICKED UP FROM PATIENTS PHARMACY IT WAS SENT ELECTRONICALLY.
== END 2020-09-10 15:10 | disposition home health service (06) | DRG 871 ==
LOC: ER 12:18 → DOU3 17:14 → TELE-TD3 17:55 → TELE3 18:25 → TELE-TD3 19:18 → CCU 09-05 18:52 → TELE3 09-07 11:23
PROVIDERS: ADMIT Registered Nurse; ATTEND Family Medicine
DX: A41.9 Sepsis, unspecified organism (principal); R65.21 Severe sepsis with septic shock; N17.0 Acute kidney failure with tubular necrosis; J15.9 Unspecified bacterial pneumonia; I50.23 Acute on chronic systolic (congestive) heart failure; N39.0 Urinary tract infection, site not specified; I13.0 Hypertensive heart and chronic kidney disease with heart failure and stage 1 through stage 4 chronic kidney disease, or unspecified chronic kidney disease; I48.92 Unspecified atrial flutter; I48.0 Paroxysmal atrial fibrillation; G40.909 Epilepsy, unspecified, not intractable, without status epilepticus; G20 Parkinson's disease; N18.9 Chronic kidney disease, unspecified; D63.1 Anemia in chronic kidney disease; D69.6 Thrombocytopenia, unspecified; E03.9 Hypothyroidism, unspecified; Z87.891 Personal history of nicotine dependence; M19.90 Unspecified osteoarthritis, unspecified site; E66.9 Obesity, unspecified; Z68.28 Body mass index [BMI] 28.0-28.9, adult; N13.9 Obstructive and reflux uropathy, unspecified; N40.1 Benign prostatic hyperplasia with lower urinary tract symptoms; B96.1 Klebsiella pneumoniae [K. pneumoniae] as the cause of diseases classified elsewhere; R19.7 Diarrhea, unspecified; Z20.822 Contact with and (suspected) exposure to COVID-19; Z79.01 Long term (current) use of anticoagulants
CPT/HCPCS: 36415; 70030-TC; 71045; 76770; 83550; 83605; 83615; 83735; 84100; 84443; 85025; 85730; 86140; 87040; 87077; 87086; 93005; 93307; A4663; G0378; J0282; J0696; J1160; J1940; J2543; J3490; J7040; J7050; J7060; J8499